=== PATIENT | male | born 1975 | race Caucasian/White ===

== ENCOUNTER → 2019-05-13 | Outpatient (CLI) | payer OTHER ==
[~2019-05-13] MED LIST: ATOR20TA37 PO; BACL-19 PO; DULO20CA45 PO; LOSA25TA25 PO; TAMS-11 PO
[2019-05-13 13:34] LABS: BASOPHILS # (AUTO) 0.04 x10^3/uL (0-0.1); BASOPHILS % (AUTO) 1 % (0-1); EOSINOPHILS # (AUTO) 0.12 x10^3/uL (0-0.4); EOSINOPHILS % (AUTO) 2 % (1-7); LYMPHOCYTES # (AUTO) 2.13 x10^3/uL (1-3.4); LYMPHOCYTES % (AUTO) 30 % (22-44); MD NO; MEAN CORPUSCULAR HEMOGLOBIN 32.4 pg (27.5-34.5); MEAN CORPUSCULAR HGB CONC 33.1 g/dL (33.2-36.2); MEAN CORPUSCULAR VOLUME 97.6 fL (81-97); MEAN PLATELET VOLUME 7.4 fL (7.4-10.4); MONOCYTES % (AUTO) 8 % (2-9); NEUTROPHILS # (AUTO) 4.33 x10^3/uL (1.8-6.8); NEUTROPHILS % (AUTO) 60 % (42-75); PLATELET COUNT 334 x10^3/uL (130-400); RED BLOOD COUNT 4.85 x10^6/uL (4.38-5.82); RED CELL DISTRIBUTION WIDTH 13.7 % (9.4-14.8)
[2019-05-13 13:45] LABS: ALBUMIN 3.9 g/dL (3.4-5.0); ANION GAP 3 mmol/L (5-15); CALCIUM 9.1 mg/dL (8.5-10.1); CHLORIDE 104 mmol/L (98-107)
[2019-05-13 13:50] LABS: ALANINE AMINOTRANSFERASE 28 U/L (12-78); ALKALINE PHOSPHATASE 104 U/L (45-117); BILIRUBIN,TOTAL 0.5 mg/dL (0.2-1.0); CREATININE 1.19 mg/dL (0.7-1.3); TOTAL PROTEIN 8.2 g/dL (6.4-8.2)
== END | disposition home or self-care (01) ==
LOC: STAR 12:50
PROVIDERS: ATTEND Urology
DX: Z01.818 Encounter for other preprocedural examination (principal); C61 Malignant neoplasm of prostate; R94.31 Abnormal electrocardiogram [ECG] [EKG]
CPT/HCPCS: 36415; 80053; 85025; 93005

== ENCOUNTER 2019-05-22 06:47 | Inpatient (IN) | payer OTHER ==
[~2019-05-22] VITALS: Ht 177.8 cm; Wt 113.4 kg
[2019-05-22] MEDS ORDERED: LACTATED RINGERS 1,000 ML IV SCH (07:52)
[2019-05-22 07:56] VITALS: BP 127/81
[2019-05-22] MEDS ORDERED: KETOROLAC 30 MG/1 ML IV PRN (11:00)
[2019-05-22] MEDS ORDERED: MEPERIDINE/PF 25MG/0.5ML IVPush PRN (11:00)
[2019-05-22] MEDS ORDERED: MIDAZOLAM 1 MG/ML, 2ML IV PRN (11:00)
[2019-05-22] MEDS ORDERED: LABETALOL 5MG/ML, 20ML IV PRN (11:00)
[2019-05-22] MEDS ORDERED: ALBUTEROL/IPRATROPIUM 2.5MG/0.5MG, 3 ML NPPB PRN (11:00)
[2019-05-22] MEDS ORDERED: ACETAMINOPHEN 325 MG TABLET PO PRN (11:00)
[2019-05-22] MEDS ORDERED: ONDANSETRON 2MG/ML, 2ML IV PRN (11:00)
[2019-05-22] MEDS ORDERED: DEXAMETHASONE 4 MG/ML, 1ML IV PRN (11:00)
[2019-05-22] MEDS ORDERED: EPHEDRINE 50 MG/ML, 1ML IVPush PRN (11:00)
[2019-05-22] MEDS ORDERED: FENTANYL PF 100 MCG/2ML IV PRN (11:00)
[2019-05-22] MEDS ORDERED: hydrALAzine 20 MG/ML, 1ML IV PRN (11:00)
[2019-05-22] MEDS ORDERED: DIPHENHYDRAMINE 50 MG/ML, 1ML IVPush PRN (11:00)
[2019-05-22] MEDS ORDERED: OXYcodone 5 MG/5 ML ORAL.SOL UDC PO PRN (11:00)
[2019-05-22] MEDS ORDERED: HYDROcodone/APAP 7.5-325MG/15ML UDC PO PRN (11:00)
[2019-05-22] MEDS ORDERED: SCOPOLAMINE PATCH, 1.5MG PATCH.TD72 TD PRN (11:00)
[2019-05-22] MEDS ORDERED: BUPIVACAINE/PF 0.25% ONE ×2 (11:44→16:42)
[2019-05-22] MEDS ORDERED: OPIUM/BELLADONNA SUPP.RECT 16.2-60 MG ONE (11:44)
[2019-05-22] MEDS ORDERED: EPINEPHRINE 1 MG/ML, 1ML ONE (11:44)
[2019-05-22] MEDS ORDERED: THROMBIN 5,000 UNIT VIAL TP ONE (13:00)
[2019-05-22] MEDS ORDERED: BUPIVACAINE/PF 0.25% INFIL ONE (13:23)
[2019-05-22] MEDS ORDERED: GLYCOPYRROLATE 0.2MG/1ML, 5ML ONE (14:16)
[2019-05-22] MEDS ORDERED: DEXAMETHASONE 4 MG/ML, 1ML ONE (14:16)
[2019-05-22] MEDS ORDERED: ROCURONIUM 10MG/ML,5ML ONE (14:16)
[2019-05-22] MEDS ORDERED: CEFAZOLIN 1,000 MG ONE (14:16)
[2019-05-22] MEDS ORDERED: PROPOFOL 10 MG/ML, 50ML ONE (14:16)
[2019-05-22] MEDS ORDERED: FENTANYL PF 100 MCG/2ML ONE (17:24)
[2019-05-22] MEDS ORDERED: HYDROmorphone 2 MG/ML, 1ML ONE (17:25)
[2019-05-22] MEDS ORDERED: OXYcodone 5 MG/5 ML ORAL.SOL UDC ONE (17:25)
[2019-05-22] MEDS: HYDROmorphone 2 MG/ML, 1ML IVPush PRN ×3 (17:45→18:21)
[2019-05-22] MEDS ORDERED: OPIUM/BELLADONNA SUPP.RECT 16.2-60 MG PR PRN (19:00)
[2019-05-22] MEDS ORDERED: MORPHINE SULFATE 4 MG/ML, 1ML IV PRN (19:00)
[2019-05-22] MEDS: D5%-0.45NACL+KCL 20MEQ 1,000 ML IV SCH (19:41)
[2019-05-22 19:58] VITALS: BP 115/68
[2019-05-22] MEDS: ACETAMINOPHEN 500 MG TABLET PO SCH (20:03)
[2019-05-22] MEDS: ATORVASTATIN 20 MG TABLET PO SCH (22:38)
[2019-05-22] MEDS: OXYcodone IR 5MG TABLET PO PRN (22:38)
[2019-05-23] VITALS (9 sets, daily range): BP systolic 67–124; BP diastolic 63–89
[2019-05-23] MEDS: ACETAMINOPHEN 500 MG TABLET PO SCH ×4 (02:10→20:29)
[2019-05-23] MEDS: D5%-0.45NACL+KCL 20MEQ 1,000 ML IV SCH ×3 (02:26→17:24)
[2019-05-23] MEDS: OXYcodone IR 5MG TABLET PO PRN ×4 (02:26→20:43)
[2019-05-23 06:00] LABS: ANION GAP 5 mmol/L (5-15); CALCIUM 8.2 mg/dL (8.5-10.1); CHLORIDE 103 mmol/L (98-107); CREATININE 1.22 mg/dL (0.7-1.3)
[2019-05-23] MEDS: ENOXAPARIN 40 MG/0.4 ML SQ SCH (07:50)
[2019-05-23] MEDS ORDERED: LOSARTAN 25MG TABLET PO SCH (09:00)
[2019-05-23] MEDS ORDERED: DULOXETINE 20 MG CAPSULE.DR PO SCH (09:00)
[2019-05-23] MEDS ORDERED: BACLOFEN 10 MG TABLET PO SCH (09:00)
[2019-05-23] MEDS ORDERED: SODIUM CHLORIDE 0.9% 1,000ML IVBOLUS ONE (11:30)
[2019-05-23] MEDS: ATORVASTATIN 20 MG TABLET PO SCH (20:29)
[2019-05-24] MEDS: D5%-0.45NACL+KCL 20MEQ 1,000 ML IV SCH ×3 (00:10→14:56)
[2019-05-24 01:57] VITALS: BP 114/69
[2019-05-24] MEDS: ACETAMINOPHEN 500 MG TABLET PO SCH ×4 (02:39→21:08)
[2019-05-24 05:48] LABS: CHLORIDE 102 mmol/L (98-107)
[2019-05-24 05:55] LABS: ANION GAP 6 mmol/L (5-15); CALCIUM 7.7 mg/dL (8.5-10.1); CREATININE 1.03 mg/dL (0.7-1.3)
[2019-05-24 07:03] VITALS: BP 114/77
[2019-05-24] MEDS: ENOXAPARIN 40 MG/0.4 ML SQ SCH (08:13)
[2019-05-24 12:46] VITALS: BP 138/76
[2019-05-24] MEDS: OXYcodone IR 5MG TABLET PO PRN (14:58)
[2019-05-24] MEDS: DULOXETINE 20 MG CAPSULE.DR PO SCH (17:43)
[2019-05-24] MEDS: BACLOFEN 10 MG TABLET PO SCH (17:43)
[2019-05-24] MEDS: LOSARTAN 25MG TABLET PO SCH (17:43)
[2019-05-24 18:22] VITALS: BP 129/71
[2019-05-24] MEDS: ATORVASTATIN 20 MG TABLET PO SCH (21:08)
[2019-05-24 22:00] VITALS: BP 135/88
[2019-05-25] MEDS: D5%-0.45NACL+KCL 20MEQ 1,000 ML IV SCH ×3 (00:01→20:40)
[2019-05-25 00:12] VITALS: BP 131/88
[2019-05-25] MEDS: ACETAMINOPHEN 500 MG TABLET PO SCH ×4 (03:00→20:40)
[2019-05-25 04:13] VITALS: BP 129/81
[2019-05-25] MEDS: ENOXAPARIN 40 MG/0.4 ML SQ SCH ×2 (08:00→14:16)
[2019-05-25 08:41] VITALS: BP 122/82
[2019-05-25] MEDS ORDERED: ONDANSETRON 2MG/ML, 2ML IVPush PRN (12:30)
[2019-05-25 12:40] VITALS: BP 121/76
[2019-05-25 17:20] VITALS: BP 116/76
[2019-05-25] MEDS: LOSARTAN 25MG TABLET PO SCH (17:24)
[2019-05-25] MEDS: BACLOFEN 10 MG TABLET PO SCH (17:25)
[2019-05-25] MEDS: DULOXETINE 20 MG CAPSULE.DR PO SCH (17:26)
[2019-05-25 18:19] VITALS: BP 117/73
[2019-05-25] MEDS: ATORVASTATIN 20 MG TABLET PO SCH (20:40)
[2019-05-26 00:57] VITALS: BP 124/76
[2019-05-26] MEDS: ACETAMINOPHEN 500 MG TABLET PO SCH ×3 (03:00→15:00)
[2019-05-26] MEDS: D5%-0.45NACL+KCL 20MEQ 1,000 ML IV SCH (07:00)
[2019-05-26 07:14] VITALS: BP 109/68
[2019-05-26] MEDS: ENOXAPARIN 40 MG/0.4 ML SQ SCH (08:00)
[2019-05-26 12:14] LABS: BASOPHILS # (AUTO) 0.05 x10^3/uL (0-0.1); BASOPHILS % (AUTO) 1 % (0-1); EOSINOPHILS # (AUTO) 0.15 x10^3/uL (0-0.4); EOSINOPHILS % (AUTO) 2 % (1-7); LYMPHOCYTES # (AUTO) 1.21 x10^3/uL (1-3.4); LYMPHOCYTES % (AUTO) 13 % (22-44); MD NO; MEAN CORPUSCULAR HEMOGLOBIN 33.4 pg (27.5-34.5); MEAN CORPUSCULAR HGB CONC 33.5 g/dL (33.2-36.2); MEAN CORPUSCULAR VOLUME 99.4 fL (81-97); MEAN PLATELET VOLUME 7.3 fL (7.4-10.4); MONOCYTES # (AUTO) 0.81 x10^3/uL (0.2-0.8); MONOCYTES % (AUTO) 9 % (2-9); NEUTROPHILS # (AUTO) 7.15 x10^3/uL (1.8-6.8); NEUTROPHILS % (AUTO) 76 % (42-75); PLATELET COUNT 309 x10^3/uL (130-400); RED BLOOD COUNT 2.58 x10^6/uL (4.38-5.82); RED CELL DISTRIBUTION WIDTH 13.9 % (9.4-14.8)
[2019-05-26 13:45] VITALS: BP 117/75
== END 2019-05-26 17:02 | disposition home or self-care (01) | DRG 707 ==
LOC: OR 06:47 → 4NOR 18:12 → OR 18:41 → 4NOR 18:41
PROVIDERS: ADMIT Urology; ATTEND Urology
PROC: 0VT04ZZ Resection of Prostate, Percutaneous Endoscopic Approach (ICD-10-PCS; 2019-05-22)
PROC: 8E0W4CZ Robotic Assisted Procedure of Trunk Region, Percutaneous Endoscopic Approach (ICD-10-PCS; 2019-05-22)
PROC: 07BC4ZZ Excision of Pelvis Lymphatic, Percutaneous Endoscopic Approach (ICD-10-PCS; principal; 2019-05-22 11:00)
PROC: 5A09357 Assistance with Respiratory Ventilation, Less than 24 Consecutive Hours, Continuous Positive Airway Pressure (ICD-10-PCS; 2019-05-24)
PROC: 5A09357 Assistance with Respiratory Ventilation, Less than 24 Consecutive Hours, Continuous Positive Airway Pressure (ICD-10-PCS; 2019-05-25)
PROC: 5A09357 Assistance with Respiratory Ventilation, Less than 24 Consecutive Hours, Continuous Positive Airway Pressure (ICD-10-PCS; 2019-05-26)
DX: C61 Malignant neoplasm of prostate (principal); R71.0 Precipitous drop in hematocrit; F32.9 Major depressive disorder, single episode, unspecified; I10 Essential (primary) hypertension; E78.00 Pure hypercholesterolemia, unspecified; G47.33 Obstructive sleep apnea (adult) (pediatric)
CPT/HCPCS: 36415; 80048; 82570; 85014; 85018; 85025; 86850; 86900; 88305; 88309; C1729; G0378; J0171; J0690; J1100; J1170; J1650; J2250; J2704; J3010; J3490; C1760; J3480; J7030

== ENCOUNTER 2019-05-29 08:21 | Outpatient (CLI) | payer OTHER | END 2019-05-29 23:59 | disposition home or self-care (01) | LOC: RAD 08:21 | PROVIDERS: ATTEND Urology | DX: C61 Malignant neoplasm of prostate (principal) | CPT/HCPCS: 51600; 74430; Q9958 ==